=== PATIENT | female | born 1965 | race Caucasian/White ===

== ENCOUNTER → 2016-07-24 | Outpatient (CLI) | payer OTHER ==
[~2016-07-24] MED LIST: FEXO180T81 PO; FLUT9.9S NS; HYDR12.58 PO; PRAV20TA2 PO
[2016-07-24 16:14] LABS: BASO # 0.1 x10^3/uL (0.0-0.2); BASO % 1 % (0-3); EOS % 2 % (0-3); HEMATOCRIT 36.7 % (36.0-47.0); HEMOGLOBIN 12.8 g/dL (12.0-15.5); LYMPH # 2.4 x10^3/uL (1.0-4.8); LYMPH % 25 % (24-48); MEAN CORPUSCULAR HEMOGLOBIN 31 pg (25-35); MEAN CORPUSCULAR HGB CONC 35 g/dL (31-37); MEAN CORPUSCULAR VOLUME 90 fL (79-100); MONO % 7 % (0-9); NEUT % 66 % (31-73); PLATELET COUNT 287 x10^3/uL (140-400); RED BLOOD COUNT 4.08 x10^6/uL (3.50-5.40); RED CELL DISTRIBUTION WIDTH 12.5 % (11.5-14.5); WHITE BLOOD COUNT 9.6 x10^3/uL (4.0-11.0)
[2016-07-24 16:28] LABS: CALCIUM 9.2 mg/dL (8.5-10.1); CREATININE 0.8 mg/dL (0.6-1.0); GFR 75.6; POTASSIUM 3.8 mmol/L (3.5-5.1)
== END | disposition home or self-care (01) ==
LOC: SURGPAT 15:12
PROVIDERS: ATTEND Obstetrics & Gynecology
DX: Z01.812 Encounter for preprocedural laboratory examination (principal)
CPT/HCPCS: 36415; 80048; 85027

== ENCOUNTER 2016-07-31 05:59 | Observation (INO) | payer OTHER ==
[2016-07-31] VITALS (10 sets, daily range): BP systolic 110–137; BP diastolic 41–73
[~2016-07-31] VITALS: Ht 167.6 cm; Wt 79.4 kg
[2016-07-31] MEDS ORDERED: BUPIVACAINE-EPI 0.25%-1:200000 MPF 30 ML VIAL. ONE (06:38)
[2016-07-31] MEDS ORDERED: METHYLENE BLUE 1% 1 ML VIAL. ONE (06:39)
[2016-07-31] MEDS ORDERED: ESTROGENS, CONJ VAGINAL CREAM 30GM TUBE. ONE (06:39)
[2016-07-31] MEDS ORDERED: ROCURONIUM 50 MG/5 ML VIAL. ONE (06:55)
[2016-07-31] MEDS ORDERED: fentaNYL PF VIAL 100 MCG/2 ML VIAL ONE ×2 (06:58→08:18)
[2016-07-31] MEDS ORDERED: LIDOCAINE 2% 100 MG/5 ML SYRINGE. ONE (06:58)
[2016-07-31] MEDS ORDERED: PROPOFOL 20 ML IV ONE (06:58)
[2016-07-31] MEDS ORDERED: SUCCINYLCHOLINE 200 MG/10 ML VIAL. ONE (06:59)
[2016-07-31] MEDS ORDERED: fentaNYL PF VIAL 100 MCG/2 ML VIAL IV PRN ×2 (07:00→10:15)
[2016-07-31] MEDS ORDERED: HYDROmorphone 2 MG/ML VIAL IV PRN (07:00)
[2016-07-31] MEDS ORDERED: ONDANSETRON PF 4 MG/2 ML VIAL. IV PRN ×2 (07:00→09:15)
[2016-07-31] MEDS ORDERED: PROCHLORPERAZINE 10 MG/2 ML VIAL. IV PRN (07:00)
[2016-07-31] MEDS ORDERED: LIDOCAINE 1% 1 ML SYRINGE. ID PRN (07:00)
[2016-07-31] MEDS ORDERED: IV RINGERS,LACTATED 1000ML 1,000 ML IV SCH ×2 (07:00→07:15)
[2016-07-31 07:10] LABS: NEG OBC UR NEG; POS OBC UR POS
[2016-07-31] MEDS ORDERED: SCOPOLAMINE 1.5MG PATCH. TD ONE (07:15)
[2016-07-31] MEDS ORDERED: DESFLURANE 61 TO 120 MINUTES IH ONE (07:46)
[2016-07-31] MEDS ORDERED: DEXAMETHASONE SOD PHOS 20 MG/5 ML VIAL. ONE (07:46)
[2016-07-31] MEDS ORDERED: ePHEDrine PF IN SALINE 50 MG/5 ML DISP.SYRIN IV ONE (07:51)
[2016-07-31] MEDS ORDERED: FAMOTIDINE 20 MG/2 ML VIAL ONE (08:08)
[2016-07-31] MEDS ORDERED: ONDANSETRON PF 4 MG/2 ML VIAL. ONE (08:08)
[2016-07-31] MEDS ORDERED: GLYCOPYRROLATE 1 MG/5 ML VIAL. ONE (08:09)
[2016-07-31] MEDS ORDERED: NEOSTIGMINE METHYLSULFATE 5 MG/5 ML SYRINGE. ONE (08:09)
--- NOTE | 2016-07-31 09:04 | PDOC ---
BRIEF OPERATIVE NOTE Date: July 31, 2016 Pre-Op Diagnosis pelvic pain, endometriosis, menorrhagia Post-Op Diagnosis same; R ovarian cyst Procedure Performed lavh and bso Surgeon Patrizia [employer] Provider John Anesthesiologist yes Anesthesia Type: General Blood Loss 100cc IV Fluid see anesth Urine Output see anesth Specimens Obtained uterus, tubes, ovaries Findings see dictation Complications none WINSTON CHAVES MD July 31, 2016 09:04
--- NOTE | 2016-07-31 09:05 | DISCH ---
DISCHARGE INSTRUCTIONS Condition on Discharge Condition on Discharge: Stable Activity After Discharge Activity Instructions for Disc: Activity as tolerated, Avoid exertion, Progressive ambulation Bathing Instructions: Shower-keep dressing dry, No Tub Bath until see Exercise Instruction after Dis: Progress as tolerated Driving Instructions after Dis: No driving for 2 weeks Weight Bearing Status after Di: As tolerated Diet after Discharge Diet after Discharge: Regular Wound Incision Care Wound/Incision Care: Ice to area for comfort, May get incision wet Contacting the DRFaye after DC Call your doctor for: If your condition worsens Follow-Up Follow up with: 1 week in office WINSTON CHAVES MD July 31, 2016 09:05
[2016-07-31] MEDS ORDERED: SIMETHICONE 80 MG TAB.CHEW PO PRN (09:15)
[2016-07-31] MEDS ORDERED: CALCIUM CARBONATE 500 MG TAB.CHEW PO PRN (09:15)
[2016-07-31] MEDS ORDERED: METOCLOPRAMIDE HCL 10 MG/2 ML VIAL. IV PRN (09:15)
[2016-07-31] MEDS ORDERED: MAG HYDROX/ALUMINUM HYD/SIMETH 30 ML ORAL.SUSP PO PRN (09:15)
[2016-07-31] MEDS ORDERED: diphenhydrAMINE HCL 25 MG CAPSULE PO PRN (09:15)
[2016-07-31] MEDS ORDERED: 0.9 % SODIUM CHLORIDE 10 ML DISP.SYRIN. IV PRN (09:15)
[2016-07-31] MEDS ORDERED: NALOXONE 0.4 MG/ML VIAL. IV PRN (09:15)
[2016-07-31] MEDS ORDERED: ZOLPIDEM 5 MG TABLET. PO PRN (09:15)
[2016-07-31] MEDS ORDERED: diphenhydrAMINE 50 MG/ML VIAL IV PRN (09:15)
[2016-07-31] MEDS ORDERED: KETOROLAC TROMETHAMINE 30 MG/ML INJ. IV PRN (09:15)
[2016-07-31] MEDS ORDERED: LACTULOSE 20 GM/30 ML SOLUTION. PO PRN (09:15)
[2016-07-31] MEDS: fentaNYL PF VIAL 100 MCG/2 ML VIAL IV PRN ×2 (09:33→09:46)
[2016-07-31] MEDS ORDERED: ESTRADIOL WEEKLY 0.1 MG PATCH. TD ONE (09:34)
[2016-07-31] MEDS ORDERED: ESTRADIOL WEEKLY 0.1 MG PATCH. TD SCH (10:00)
[2016-07-31] MEDS: oxyCODONE/APAP 5/325 1 TAB TABLET PO PRN ×3 (13:25→21:18)
--- NOTE | 2016-07-31 16:29 | OP ---
DATE OF SURGERY: 07/31/2016 PREOPERATIVE DIAGNOSES: This is a 50-year-old female who presents today with history of endometrial cyst and menorrhagia with pelvic pain. POSTOPERATIVE DIAGNOSES: This is a 50-year-old female who presents today with history of endometrial cyst and menorrhagia with pelvic pain. PROCEDURE: Laparoscopic-assisted vaginal hysterectomy and bilateral salpingo-oophorectomy. SURGEONS: Dr. Elissa Chaves and Dr. Lopez. ANESTHESIA: General. COMPLICATIONS: None. ESTIMATED BLOOD LOSS: 100 mL. SPECIMENS: Uterus, tubes, and bilateral ovaries. DESCRIPTION OF PROCEDURE: After informed consent was obtained, the patient was taken to the operating room and given a smooth induction of anesthesia without complications. Her legs have been placed in Manolo stirrups. She received a gram of Ancef prior to the procedure. A Walter catheter had been placed. Her abdomen, perineum, and vagina were prepped and draped in usual sterile fashion. A weighted speculum was placed in the vagina and the anterior lip of the cervix was grasped with a single tooth tenaculum. The cervix was injected with 0.25% Marcaine with epinephrine at 2, 4, 8, and 10 o'clock on the cervix, a total of 10 mL was used. A Valtchev was placed through the cervical os and attached to the tenaculum and the speculum was then removed. We changed gloves and went above. A 5 mm incision was made at the umbilicus, at the site of a previous scar. The bladeless trocar was placed down through this incision. The camera confirmed good trocar placement. The patient was then placed in Trendelenburg. The uterus was noted to be slightly enlarged sort of tethered to the left hand side. Both ovaries were noted to be fairly normal. The right ovary had a 2 cm cyst on it. Both tubes were noted to be normal. There was some endometriosis in the posterior cul-de-sac. There was also an Manolo-Masters window in the posterior cul-de-sac on the right hand side. We then placed two lateral ports under direct visualization; these were both 5 mm ports. We then used the LigaSure to cauterize the round ligaments on both sides. These were transected and then the bladder flap was created anteriorly using LigaSure. We used a combination of blunt dissection and sharp dissection. We then proceeded to visualize the ureter on the right side. We then proceeded to cauterize across the infundibulopelvic ligament. We had a little bit of bleeding from this ligament and this was cauterized, then taking care of. Once we freed the ovary and tube from the sidewall, we were able to cauterize the uterine vessels going down the right side. This was done without difficulty. On the left side, again the uterus was rather tethered to the left side. We cauterized across the round ligament anteriorly and then created a window in the medial leaf of the broad ligament. We then elevated the uterus and we were able to visualize the ureter running along the lower left pelvic sidewall. We then cauterized across the IP ligament on the left side. Once the ovary and tube were freed from the sidewall, we were able to cauterize across the uterine branches going down the sides of the uterus. We were able to cauterize on both sides down to the level of the uterosacral ligaments. We then removed the instruments from above and went down below. A weighted speculum was placed in the vagina and the Valtchev and tenaculum replaced by 2 Rishi thyroid clamps. We then created a circumferential incision at the cervicovaginal junction. The bladder was retracted superiorly using blunt dissection with the Ray-Donya. We then entered the posterior peritoneum using sharp dissection and tacked the posterior peritoneum to the posterior vaginal wall. This was tacked for later use. The Chencho speculum was then placed intraperitoneally. The 2 Rishi thyroid clamps were then placed across the uterosacral cardinal complex on the left side. This was clamped and then ligated and tied off with 2 Yanira transfixion sutures. The second suture was then tacked to the lateral vaginal sidewall and saved for later use. The same procedure was carried out on the right side. We then continued to cauterize; using the vaginal LigaSure, we cauterized the sides of the uterus. Once it was freed, it was removed from the field with the ovaries and tubes intact. We then closed the peritoneum with a running purse-string suture of 2-0 Vicryl and then closed the vaginal wall with a running locking stitch of 2-0 Vicryl. At this point, a good hemostasis was noted. We changed gloves and went above to irrigate the pelvis. The pelvis was irrigated. No bleeding was noted. We sprayed Tisseel on all the raw surfaces and again no bleeding was noted. We allowed some of the gas to escape and again looked at the cuff, no bleeding was noted. At this point, the ports were removed under direct visualization. No bleeding was noted from the ports. We then removed the umbilical port without difficulty. The gas was allowed to escape naturally. The incision sites were closed with an interrupted suture of 4-0 nylon and infiltrated with anesthetic for patient comfort. The Walter was removed prior to the patient's transfer to the recovery room. The patient tolerated the procedure well. There were no complications. ELISSA CHAVES MD DR: MATILDA/ervin JOB#: [id number] / [id number]
[2016-07-31] MEDS: IBUPROFEN 600 MG TABLET. PO PRN (21:18)
[2016-08-01 04:10] VITALS: BP 105/54
[2016-08-01 04:44] LABS: CALCIUM 8.5 mg/dL (8.5-10.1); CREATININE 0.8 mg/dL (0.6-1.0); GFR 75.6; POTASSIUM 3.6 mmol/L (3.5-5.1)
--- NOTE | 2016-08-01 09:24 | PDOC ---
SURGICAL PROGRESS NOTE Subjective POD# 1 from [facility] and BSO for endometriosis and menorrhagia. Doing well. Ambulating and tolerating regular diet. Tolerating oral pain meds. Vital Signs Vital Signs Date Time Temp Pulse Resp B/P (MAP) Pulse Ox O2 Delivery O2 Flow Rate FiO2 08/01/16 04:10 98.2 80 18 105/54 (71) 95 Room Air 98.2 07/31/16 09:33 10.0 I&O Intake and Output 08/01/16 06:59 Intake Total 3790 ml Output Total 925 ml Balance 2865 ml Intake Oral 1800 ml IV Total 1990 ml Output Urine Total 825 ml Estimated Blood Loss 100 ml PATIENT HAS A KAMINSKI: No General: Alert, Oriented X3, Cooperative, No acute distress HEENT: Mucous membr. moist/pink Abdomen: Normal bowel sounds, Soft, No tenderness, No hepatosplenomegaly, No masses, Other (incisions d/c/i) Extremities: No clubbing, No cyanosis, No edema, Normal pulses, No tenderness/ swelling Labs Sugar likely high due to IVF still running at time of draw Laboratory Tests Test 07/31/16 07:00 07/31/16 14:50 08/01/16 03:55 Urine Test Negative (NEG) Hematocrit 32.7 % (36.0-47.0) Sodium Level 136 mmol/L (136-145) Potassium Level 3.6 mmol/L (3.5-5.1) Chloride Level 101 mmol/L (98-107) Carbon Dioxide Level 28 mmol/L (21-32) Anion Gap 7 (6-14) Blood Urea Nitrogen 13 mg/dL (7-20) Creatinine 0.8 mg/dL (0.6-1.0) Estimated GFR (Cockcroft-Gault) 75.6 Glucose Level 134 mg/dL (70-99) Calcium Level 8.5 mg/dL (8.5-10.1) Laboratory Tests Test 07/31/16 14:50 08/01/16 03:55 Hematocrit 32.7 % (36.0-47.0) Sodium Level 136 mmol/L (136-145) Potassium Level 3.6 mmol/L (3.5-5.1) Chloride Level 101 mmol/L (98-107) Carbon Dioxide Level 28 mmol/L (21-32) Anion Gap 7 (6-14) Blood Urea Nitrogen 13 mg/dL (7-20) Creatinine 0.8 mg/dL (0.6-1.0) Estimated GFR (Cockcroft-Gault) 75.6 Glucose Level 134 mg/dL (70-99) Calcium Level 8.5 mg/dL (8.5-10.1) I have reviewed the following labs, vitals Assessment/Plan POD#1 From [facility] and BSO. Doing well and ready for discharge. Hematocrit drop likely more dilutional than acute blood loss. Plan for d/c. Problems: (1) Menorrhagia (2) Endometriosis (3) Pelvic pain Problem Qualifiers (1) Menorrhagia: Menorrahagia type: with regular cycle Qualified Codes: N92.0 - Excessive and frequent menstruation with regular cycle WINSTON CHAVES MD August 01, 2016 09:24
--- NOTE | 2016-08-01 09:28 | PDOC3 ---
Discharge Summary Visit Information Date of Admission: July 31, 2016 Date of Discharge: August 01, 2016 Admitting Diagnosis: endometriosis, pelvic pain, menorrhagia Final Diagnosis same plus R ovarian cyst Brief Hospital Course Allergies Allergies Coded Allergies Type Severity Reaction Last Updated Verified amoxicillin Adverse Reaction Intermediate N/V 07/31/16 Yes clavulanic acid Adverse Reaction Intermediate N/V 07/31/16 Yes morphine Adverse Reaction Intermediate Palpitations 07/31/16 Yes Vital Signs Vital Signs Date Time Temp Pulse Resp B/P (MAP) Pulse Ox O2 Delivery O2 Flow Rate FiO2 08/01/16 04:10 98.2 80 18 105/54 (71) 95 Room Air 98.2 07/31/16 09:33 10.0 Lab Results Laboratory Tests Test 07/31/16 07:00 07/31/16 14:50 08/01/16 03:55 Urine Test Negative (NEG) Hematocrit 32.7 % (36.0-47.0) Sodium Level 136 mmol/L (136-145) Potassium Level 3.6 mmol/L (3.5-5.1) Chloride Level 101 mmol/L (98-107) Carbon Dioxide Level 28 mmol/L (21-32) Anion Gap 7 (6-14) Blood Urea Nitrogen 13 mg/dL (7-20) Creatinine 0.8 mg/dL (0.6-1.0) Estimated GFR (Cockcroft-Gault) 75.6 Glucose Level 134 mg/dL (70-99) Calcium Level 8.5 mg/dL (8.5-10.1) Laboratory Tests Test 07/31/16 14:50 08/01/16 03:55 Hematocrit 32.7 % (36.0-47.0) Sodium Level 136 mmol/L (136-145) Potassium Level 3.6 mmol/L (3.5-5.1) Chloride Level 101 mmol/L (98-107) Carbon Dioxide Level 28 mmol/L (21-32) Anion Gap 7 (6-14) Blood Urea Nitrogen 13 mg/dL (7-20) Creatinine 0.8 mg/dL (0.6-1.0) Estimated GFR (Cockcroft-Gault) 75.6 Glucose Level 134 mg/dL (70-99) Calcium Level 8.5 mg/dL (8.5-10.1) Brief Hospital Course Ms. Rose is a 50 old F who presented with a history of endometriosis seen on previous l/s. Pt was having pelvic pain and menorrhagia and desired definitive treatment. She underwent LAVH and BSO yesterday. She tolerated the procedure well. EBL only 100cc. Today, she is tolerating her diet and pain medication and ambulating. SHe is having minimal pain and this is controlled with her pain medications. She is ready for discharge. Her labs are stable. Discharge Information Scheduled Fexofenadine Hcl (Kalani Allergy), 1 TAB PO DAILY, (Reported) Fluticasone Propionate (Flonase Allergy Relief), 2 SPRAYS NS DAILY, (Reported) Hydrochlorothiazide (Hydrochlorothiazide Tablet), 25 TAB PO DAILY, (Reported) Pravastatin Sodium (Pravastatin Sodium), 20 TAB PO QHS, (Reported) Patient Instructions Patient Instructions D/c to home. Diet regular. Nothing in vagina and no heavy lifting over 10#. F/u 1 week in office. Pt has pain med script at home. WINSTON CHAVES MD August 01, 2016 09:28
[2016-08-01 10:00] VITALS: BP 121/68
[2016-08-01] MEDS: IBUPROFEN 600 MG TABLET. PO PRN (10:02)
--- NOTE | 2016-08-06 09:24 | PATHOLOGY ---
PATHOLOGY REPORT * * * * * * * * FINAL DIAGNOSIS: "Uterus, bilateral ovaries and fallopian tubes", hysterectomy and bilateral salpingo-oophorectomy: - Cervix with mild chronic inflammation, squamous metaplasia and Nabothian cysts. - Basalis endometrium with partial autolysis. - Myometrium with leiomyomata, up to 1.0 cm, and abundant adenomyosis. - Serosal surface with no pathologic diagnosis. - Left ovary with no pathologic diagnosis. - No definite left fallopian tube located in left periovarian soft tissue. - Right ovary with simple cyst. - Right fallopian tube with no pathologic diagnosis. REPORT ELECTRONICALLY SIGNED BY: Anjana Ocampo M.D. DATE/TIME: 08/06/2016 09:23 * * * * * * * * GROSS PATHOLOGY: The specimen is received in formalin, labeled "Harmonuterus, cervix, bilateral tubes and ovaries" is a hysterectomy specimen including uterus, cervix, right fallopian tube and bilateral ovaries. The uterus measures 10.9 cm (superior to inferior) by 7.6 cm (cornu to cornu) by 5.2 cm (anterior to posterior) and weighs 190 g. The serosa is roth-pink, smooth and the 3.9 x 4.0 cm roth-white glistening cervical face displays a 1.5 cm paracentrally located ovoid cervical os. Specimen is bivalved to reveal a patent, trabeculated endocervical canal and a roth-pink, partially stenotic endometrium. Identified in the anterior cervix are multiple circumscribed mucoid filled cysts measuring up to 1.5 x 1.2 x 1.0 cm. Sectioning through the uterus shows a 0.1 cm thick endometrium and a 2.8 cm thick roth-pink trabeculated myometrium. Identified within the myometrium are multiple circumscribed mural nodules ranging in size from 0.5 x 0.4 x 0.4 cm up to 1 x 0.8 x 0.6 cm. The left periovarian soft tissue measures 2.8 x 2 x 0.8 cm. The tissue is sectioned to reveal a pink to red variegated cut surface. The left ovary measures 3.4 x 1.4 x 0.9 cm. The outer surface is roth white and lobulated. Sectioning through the ovary reveals a roth-pink radiated cut surface. The right fallopian tube fimbria measures 2.9 cm in length by 1.5 cm diameter. The serosa is pink-purple and smooth. Sectioning through the fallopian tube reveals a diffusely patent lumen. The adjacent ovary measures 4.2 x 3.7 x 2.2 cm. The outer surface is smooth and glistening. Sectioning through the ovary reveals a roth pink irregular cut surface and a 3.8 x 3.3 x 2.0 cm cyst containing dark red hemorrhagic material. Section code: A1-cervix 12:00 and 6:00, A2-anterior endomyometrium, A3-posterior endomyometrium, A4-anterior and posterior myometrium and serosa, A5-primary care sales representative sections of nodules, A6-left periovarian soft tissue entirely submitted, A7-left ovary, A8-right fallopian tube, A9-right ovary. (DRL; 08/02/2016) INITIAL CPT CODE(S): A; 45003 Professional services performed by [facility], [address] [place] [address]. Technical services performed by [facility], [address] [place] [address], [address], [place] [address]. SPECIMEN(S) RECEIVED: A.Uterus, cervix, bilateral fallopian tubs and ovaries CLINICAL HISTORY: Menorrhagia, endometriosis PATIENT: MARILYN ALCANTARA /AGE: 710/09/1965 (Age: 50) PATIENT #: [id number] ALT CASE #: SPECIMEN COLLECTION DATE: 07/31/2016 SPECIMEN RECEIVED DATE: 07/31/2016 [facility] - [address] [place] [address] - PHONE: [phone] * * * END OF REPORT * * *
== END 2016-08-01 10:30 | disposition home or self-care (01) ==
LOC: SURG 05:59 → 3 NORTH 09:15
PROVIDERS: ADMIT Obstetrics & Gynecology; ATTEND Obstetrics & Gynecology
DX: N92.0 Excessive and frequent menstruation with regular cycle (principal); R10.2 Pelvic and perineal pain; N85.8 Other specified noninflammatory disorders of uterus; N80.3 Endometriosis of pelvic peritoneum; N83.201 Unspecified ovarian cyst, right side
CPT/HCPCS: 36415; 58552; 80048; 81025; 85014; 86850; 86900; 86901; C1769; G0378; G0379; J0330; J0690; J0780; J1100; J1885; J2405; J2704; J2710; J3010; J3490; J7030; J7120; S0028; 88307; Q9968